=== PATIENT | female | born 1940 | race Caucasian/White ===

== ENCOUNTER 2017-06-22 18:10 | Emergency (ER) | payer MEDICARE ==
[2017-06-22 18:30] VITALS: BP 164/72; PULSE 90; RESP 18; TEMP 98.3; O2SAT 98
[2017-06-22 19:27] LABS: AUTOMATED NEUTROPHIL # 5.9 TH/MM3 (1.8-7.7); BASOPHIL % 0.4 % (0.0-2.0); EOSINOPHIL # 0.4 TH/MM3 (0-0.4); EOSINOPHIL % 3.2 % (0.0-4.0); HEMATOCRIT 38.4 % (35.0-46.0); HEMOGLOBIN 12.7 GM/DL (11.6-15.3); LYMPH % 39.1 % (9.0-44.0); LYMPHOCYTE # 4.6 TH/MM3 (1.0-4.8); MEAN CELL VOLUME 93.4 FL (80.0-100.0); MEAN CORPUSCULAR HEMOGLOBIN 30.8 PG (27.0-34.0); MEAN PLATELET VOLUME 9.9 FL (7.0-11.0); MONO % 6.9 % (0.0-8.0); MONOCYTE # 0.8 TH/MM3 (0-0.9); NEUT % 50.4 % (16.0-70.0); PLATELET COUNT 219 TH/MM3 (150-450); RED BLOOD COUNT 4.12 MIL/MM3 (4.00-5.30); RED CELL DISTRIBUTION WIDTH 13.6 % (11.6-17.2); WHITE BLOOD COUNT 11.7 TH/MM3 (4.0-11.0)
[2017-06-22 19:44] LABS: ALBUMIN 3.4 GM/DL (3.4-5.0); AST (GOT) 55 U/L (15-37); BICARBONATE 25.7 MEQ/L (21.0-32.0); BLOOD UREA NITROGEN 14 MG/DL (7-18); CALCIUM 9.3 MG/DL (8.5-10.1); CHLORIDE 104 MEQ/L (98-107); CREATININE 1.15 MG/DL (0.50-1.00); GLOMERULAR FILTRATION RATE 46 ML/MIN (>89); GLUCOSE,RANDOM 343 MG/DL (74-106); SODIUM (NA) 137 MEQ/L (136-145)
[2017-06-22 19:46] LABS: ALT (GPT) 52 U/L (10-53)
[2017-06-22 19:48] LABS: ALKALINE PHOSPHATASE 119 U/L (45-117); TOTAL BILIRUBIN ADULT 0.3 MG/DL (0.2-1.0); TOTAL PROTEIN 8.7 GM/DL (6.4-8.2)
[2017-06-22 19:55] LABS: BACTERIA, URINE MANY /hpf; BILIRUBIN, URINE NEG (NEG); BLOOD, URINE NEG (NEG); GLUCOSE,URINE 1000 mg/dL (NEG); KETONE, URINE NEG (NEG); NITRITE,URINE POS (NEG); PH, URINE 5.5 (5.0-8.5); SQUAMOUS EPITHELIAL CELL URINE 2 /hpf (0-5); URINE COLOR YELLOW (YELLW/STRAW); URINE LEUKOCYTE ESTERASE SMALL (NEG)
--- NOTE | 2017-06-22 21:35 | PD ---
HPI Chief Complaint: Flank/Kidney Pain Time Seen by Provider: 21:24 Travel History International Travel<30 days: No Contact w/Intl Traveler<30days: No Traveled to known affect area: No History of Present Illness HPI She is a 76-year-old female coming in for 2 weeks of bilateral flank pain which radiates around laterally to the suprapubic area. She also is complaining of epigastric pain. She has had urine infections in the past but never had pyelonephritis she also reports she had kidney stones but they never entered her ureter and never caused her pain as per her primary care doctor. In the ER patient is lying on her right side saying it helps the pain and when she tries to get up the pain is so severe. She has osteoarthritis of her spine as well. She is taking Tylenol because her doctor told her not to take Motrin for her stomach she denies renal history she denies elevation of her creatinine. She is diabetic for which she takes medications. In the ER she is nontoxic appearing awake alert [place]ian-speaking only. Translation done by this MD [facility] Social History Alcohol Use: No Tobacco Use: No Allergies-Medications (Allergen,Severity, Reaction): Coded Allergies: No Known Allergies (Unverified , 06/22/17) Reported Meds & Prescriptions Reported Meds & Active Scripts Active Bactrim DS (Sulfamethoxazole-Trimethoprim) 800-160 Mg Tab 1 Tab PO BID Review of Systems Except as stated in HPI: all other systems reviewed are Neg Physical Exam Narrative GENERAL: Nontoxic appearing awake alert lying on her right side seems to mildly in pain SKIN: Warm and dry. HEAD: Atraumatic. Normocephalic. EYES: Pupils equal and round. No scleral icterus. No injection or drainage. ENT: No nasal bleeding or discharge. Mucous membranes pink and moist. NECK: Trachea midline. No JVD. CARDIOVASCULAR: Regular rate and rhythm. RESPIRATORY: No accessory muscle use. Clear to auscultation. Breath sounds equal bilaterally. GASTROINTESTINAL: Abdomen mildly obese soft, epigastric -tender, nondistended. Hepatic and splenic margins not palpable. Also mild suprapubic tenderness MUSCULOSKELETAL: Extremities no edema nontender Back exam tenderness to the right CVA there is no midline back tenderness no spinous tenderness on palpation of the spinous processes. . NEUROLOGICAL: Awake and alert. No obvious cranial nerve deficits. Motor grossly within normal limits. Five out of 5 muscle strength in the arms and legs. Normal speech. PSYCHIATRIC: Appropriate mood and affect; insight and judgment normal. Data Data Last Documented VS Vital Signs Date Time Temp Pulse Resp B/P (MAP) Pulse Ox O2 Delivery O2 Flow Rate FiO2 06/22/17 18:30 98.3 90 18 164/72 (102) 98 Orders Orders Complete Blood Count With Diff (06/22/17 18:33) Comprehensive Metabolic Panel (06/22/17 18:33) Urinalysis - C+S If Indicated (06/22/17 18:33) Lipase (06/22/17 18:33) Urine Culture (06/22/17 18:50) Ketorolac Inj (Toradol Inj) (06/22/17 22:00) Sulfamet-Trimeth Ds 800-160 Mg (Bactrim (06/22/17 22:00) Ct Abd/Pel W/O Iv Contrast (06/22/17 ) Ed Discharge Order (06/22/17 23:22) Labs Laboratory Tests Test 06/22/17 18:50 06/22/17 18:52 Urine Color YELLOW Urine Turbidity CLEAR Urine pH 5.5 Urine Specific [place] 1.022 Urine Protein TRACE mg/dL Urine Glucose (UA) 1000 mg/dL Urine Ketones NEG mg/dL Urine Occult Blood NEG Urine Nitrite POS Urine Bilirubin NEG Urine Urobilinogen LESS THAN 2.0 MG/DL Urine Leukocyte Esterase SMALL Urine RBC 2 /hpf Urine WBC 26 /hpf Urine Squamous Epithelial Cells 2 /hpf Urine Bacteria MANY /hpf Microscopic Urinalysis Comment CULTURE INDICATED White Blood Count 11.7 TH/MM3 Red Blood Count 4.12 MIL/MM3 Hemoglobin 12.7 GM/DL Hematocrit 38.4 % Mean Corpuscular Volume 93.4 FL Mean Corpuscular Hemoglobin 30.8 PG Mean Corpuscular Hemoglobin Concent 33.0 % Red Cell Distribution Width 13.6 % Platelet Count 219 TH/MM3 Mean Platelet Volume 9.9 FL Neutrophils (%) (Auto) 50.4 % Lymphocytes (%) (Auto) 39.1 % Monocytes (%) (Auto) 6.9 % Eosinophils (%) (Auto) 3.2 % Basophils (%) (Auto) 0.4 % Neutrophils # (Auto) 5.9 TH/MM3 Lymphocytes # (Auto) 4.6 TH/MM3 Monocytes # (Auto) 0.8 TH/MM3 Eosinophils # (Auto) 0.4 TH/MM3 Basophils # (Auto) 0.0 TH/MM3 CBC Comment DIFF FINAL Differential Comment Blood Urea Nitrogen 14 MG/DL Creatinine 1.15 MG/DL Random Glucose 343 MG/DL Total Protein 8.7 GM/DL Albumin 3.4 GM/DL Calcium Level 9.3 MG/DL Alkaline Phosphatase 119 U/L Aspartate Amino Transf (AST/SGOT) 55 U/L Alanine Aminotransferase (ALT/SGPT) 52 U/L Total Bilirubin 0.3 MG/DL Sodium Level 137 MEQ/L Potassium Level 4.4 MEQ/L Chloride Level 104 MEQ/L Carbon Dioxide Level 25.7 MEQ/L Anion Gap 7 MEQ/L Estimat Glomerular Filtration Rate 46 ML/MIN Lipase 624 U/L [facility] Medical Decision Making Medical Screen Exam Complete: Yes Emergency Medical Condition: Yes Differential Diagnosis Differential diagnosis includes pyelonephritis versus renal stone versus UTI versus lumbar strain radiculopathy muscle strain other Narrative Course CT shows a 5 mm stone inside the renal parenchyma on the right urine shows a positive nitrate positive white blood cells multiple bacteria. Patient will be treated for UTI with possible early pyelonephritis Bactrim was given p.o. in the ER Toradol IM made her feel much better and discharged with 10 days Bactrim twice daily follow-up as an outpatient Diagnosis Primary Impression: UTI (urinary tract infection) Qualified Codes: N30.01 - Acute cystitis with hematuria Patient Instructions: General Instructions, Urinary Tract Infection in Women ( ED) Scripts Sulfamethoxazole-Trimethoprim (Bactrim DS) 800-160 Mg Tab 1 TAB PO BID for Infection, #20 TAB 0 Refills Prov: Todd Aguirre MD 06/22/17 Disposition: 01 DISCHARGE HOME Condition: Good Todd Aguirre MD Jun 22, 2017 21:35
[2017-06-22] MEDS ORDERED: SULFAMETHOXAZOLE-TRIMETHOPRIM DS 800-160 MG TAB PO ONE (22:00)
[2017-06-22] MEDS ORDERED: KETOROLAC TROMETHAMINE 60 MG/2 ML (IM) VIAL IM ONE (22:00)
--- NOTE | 2017-06-22 22:55 | RADRPT ---
EXAM DATE/TIME: 06/22/2017 22:34 [facility] COMPARISON: No previous studies available for comparison. INDICATIONS : Hematuria and bilateral flank pain. ORAL CONTRAST: No oral contrast ingested. RADIATION DOSE: 16.14 CTDIvol (mGy) MEDICAL HISTORY : Renal calculi. SURGICAL HISTORY : None. ENCOUNTER: Initial ACUITY: 1 day PAIN SCALE: 5/10 LOCATION: Bilateral flank TECHNIQUE: Volumetric scanning of the abdomen and pelvis was performed. Using automated exposure control and ad justment of the mA and/or kV according to patient size, radiation dose was kept as low as reasonably achievable to obtain optimal diagnostic quality images. DICOM format image data is available electro nically for review and comparison. FINDINGS: Lung bases are clear. No acute findings in the liver, spleen, adrenals or pancreas. Mildly lobulated liver. 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 Previous cholecystectomy. Non obstructing 5 mm right renal calculus. No ureteral or bladder calculi. No free fluid. No bowel obstruction. No adenopathy. CONCLUSION: 1. No acute findings in abdomen and pelvic CT. Varices in the left upper quadrant especially around t he spleen. Liver is slightly lobulated which indicates some cirrhosis. Nonobstructing 5 mm right ran l calculus. No hydronephrosis. Previous cholecystectomy. Erik Penaloza MD on June 22, 2017 at 22:50 Board Certified Radiologist. This report was verified electronically.
[2017-06-22] MEDS ORDERED: BACT800T5 PO (23:21)
== END 2017-06-22 23:40 | disposition home or self-care (01) ==
LOC: NEPE 18:10
DX: N30.01 Acute cystitis with hematuria (principal); B96.20 Unspecified Escherichia coli [E. coli] as the cause of diseases classified elsewhere; B96.89 Other specified bacterial agents as the cause of diseases classified elsewhere; E11.9 Type 2 diabetes mellitus without complications; M47.9 Spondylosis, unspecified; Z87.442 Personal history of urinary calculi
CPT/HCPCS: 74176; 80053; 81001; 83690; 85025; 87077; 87086; 87186; 96372; 99284; J1885